=== PATIENT | female | born 1950 | race African-American/Black ===

== ENCOUNTER 2021-12-01 01:40 | Inpatient (IN) | payer BC, MEDICARE ==
[~2021-12-01] VITALS: Ht 165.1 cm; Wt 79.4 kg
[2021-12-01] MEDS ORDERED: NITROGLYCERIN 0.4MG TABLET SL SL PRN ×2 (02:30→11:00)
[2021-12-01 02:44] LABS: BASOPHILS % 0.6 % (0.0-2.0); EOSINOPHILS % 1.9 % (0.0-5.0); HEMOGLOBIN. 12.7 g/dL (12.0-16.0); LYMPHOCYTES % 37.9 % (20.0-50.0); MEAN CORPUSCULAR HEMOGLOBIN 29.8 pg (28.0-32.0); MEAN CORPUSCULAR VOLUME 88.9 fL (81.0-99.0); MEAN PLATELET VOLUME 10.2 fl (7.4-10.4); MONOCYTES % 12.1 % (2.0-8.0); NEUTROPHILS % 47.5 % (40.0-76.0); PLATELET 204 x1000/uL (130-400); RED BLOOD CELL COUNT 4.27 mill/uL (4.2-5.4)
[2021-12-01 03:04] LABS: CHLORIDE 112 mEq/L (98-107)
[2021-12-01 09:04] VITALS: BP 135/79
[2021-12-01] MEDS ORDERED: GUAIFENESIN 200MG/10ML SUGAR FREE UDC PO PRN (10:45)
[2021-12-01] MEDS ORDERED: KETOROLAC 30MG/ML VIAL IV PRN (10:45)
[2021-12-01] MEDS ORDERED: ASPIRIN 325MG EC TABLET PO SCH (10:45)
[2021-12-01] MEDS ORDERED: IPRATROPIUM/ALBUTEROL 0.5-3(2.5)MG/3ML NEB NEB PRN (10:45)
[2021-12-01] MEDS ORDERED: ZOLPIDEM TARTRATE 5MG TABLET PO PRN (10:45)
[2021-12-01] MEDS ORDERED: ACETAMINOPHEN 325MG TABLET PO PRN ×2 (10:45)
[2021-12-01] MEDS ORDERED: DOCUSATE SODIUM 100MG CAPSULE PO PRN (10:45)
[2021-12-01] MEDS ORDERED: ONDANSETRON HCL 4MG/2ML INJ IV PRN (10:45)
[2021-12-01] MEDS ORDERED: CLONIDINE 0.1MG TABLET PO PRN (10:45)
[2021-12-01] MEDS ORDERED: KETOROLAC 15MG/ML VIAL IV PRN (10:45)
[2021-12-01] MEDS ORDERED: MAGNESIUM/ALUMINUM HYDROXIDE/SIMETHICONE 30ML UDC PO PRN (10:45)
[2021-12-01 12:00] VITALS: BP 121/61
[2021-12-01] MEDS: ENOXAPARIN 40MG/0.4ML SYR SUBCUT SCH (12:33)
[2021-12-01] MEDS: FAMOTIDINE 20MG TABLET PO SCH (12:33)
[2021-12-01] MEDS: AMLODIPINE 5MG TABLET PO SCH (14:33)
[2021-12-01 16:00] VITALS: BP 129/63
[2021-12-01] MEDS ORDERED: RIVA20TA PO (16:10)
[2021-12-01 16:33] LABS: CREATINE KINASE 114 IU/L (26-192); CREATINE KINASE MB FRACTION < 1.0 ng/mL (0.5-3.6)
[2021-12-01 17:05] LABS: FERRITIN 74 ng/mL (10-291)
[2021-12-01 17:12] LABS: VITAMIN B12 SERUM 809 pg/mL (211-911)
[2021-12-01] MEDS ORDERED: REGADENOSON 0.4 MG/5 ML IV NR (17:30)
[2021-12-01 20:00] VITALS: BP 123/51
[2021-12-02] VITALS: BP 118/59
[2021-12-02 04:00] VITALS: BP 128/77
[2021-12-02 04:24] LABS: CREATINE KINASE 114 IU/L (26-192); CREATINE KINASE MB FRACTION < 1.0 ng/mL (0.5-3.6)
[2021-12-02 07:39] LABS: BASOPHILS % 0.9 % (0.0-2.0); EOSINOPHILS % 2.2 % (0.0-5.0); HEMATOCRIT. 39.4 % (36.0-48.0); HEMOGLOBIN. 13.2 g/dL (12.0-16.0); LYMPHOCYTES % 45.1 % (20.0-50.0); MEAN CORPUSCULAR HEMOGLOBIN 29.8 pg (28.0-32.0); MEAN CORPUSCULAR VOLUME 88.7 fL (81.0-99.0); MEAN PLATELET VOLUME 10.3 fl (7.4-10.4); MONOCYTES % 10.6 % (2.0-8.0); NEUTROPHILS % 41.2 % (40.0-76.0); PLATELET 205 x1000/uL (130-400); RED BLOOD CELL COUNT 4.44 mill/uL (4.2-5.4); RED CELL DISTRIBUTION WIDTH 13.4 % (11.6-14.6)
[2021-12-02 07:49] LABS: CHLORIDE 111 mEq/L (98-107)
[2021-12-02 08:00] VITALS: BP 125/53
[2021-12-02 08:00] LABS: PHOSPHORUS 3.1 mg/dL (2.5-4.9)
[2021-12-02] MEDS: ENOXAPARIN 40MG/0.4ML SYR SUBCUT SCH (08:39)
[2021-12-02] MEDS: AMLODIPINE 5MG TABLET PO SCH (08:39)
[2021-12-02] MEDS: FAMOTIDINE 20MG TABLET PO SCH (08:39)
[2021-12-02] MEDS: ASPIRIN 81MG TABLET PO SCH (08:40)
[2021-12-02 12:00] VITALS: BP 117/62
[2021-12-02] MEDS ORDERED: REGADENOSON 0.4 MG/5 ML IV ONE (13:18)
[2021-12-02] MEDS ORDERED: METO-396 PO (14:39)
[2021-12-02] MEDS ORDERED: VALA500T55 PO (14:39)
[2021-12-02 16:00] VITALS: BP 130/75
[2021-12-02 20:00] VITALS: BP 138/64
[2021-12-03] VITALS: BP 138/54
[2021-12-03 04:00] VITALS: BP 150/75
[2021-12-03 08:00] VITALS: BP 141/58
[2021-12-03] MEDS: FAMOTIDINE 20MG TABLET PO SCH (08:28)
[2021-12-03] MEDS: ASPIRIN 81MG TABLET PO SCH (08:28)
[2021-12-03] MEDS: ENOXAPARIN 40MG/0.4ML SYR SUBCUT SCH (08:28)
[2021-12-03] MEDS: AMLODIPINE 5MG TABLET PO SCH (08:30)
[2021-12-03] MEDS ORDERED: ASPI-1406 MT (09:34)
[2021-12-03] MEDS ORDERED: FAMO-135 MT (09:34)
[2021-12-03 09:40] VITALS: BP 141/58
[2021-12-03 11:34] VITALS: BP 134/72
== END 2021-12-03 12:00 | disposition home or self-care (01) | DRG 206 ==
LOC: ER 01:40 → 8WST 05:21 → ENRESERV 07:28 → ER 08:23
PROVIDERS: ADMIT Internal Medicine; ATTEND Internal Medicine
DX: M94.0 Chondrocostal junction syndrome [Tietze] (principal); E44.1 Mild protein-calorie malnutrition; R07.89 Other chest pain; E83.51 Hypocalcemia; I10 Essential (primary) hypertension; Z20.822 Contact with and (suspected) exposure to COVID-19; I48.0 Paroxysmal atrial fibrillation; Z79.899 Other long term (current) drug therapy; Z68.29 Body mass index [BMI] 29.0-29.9, adult
CPT/HCPCS: 36415; 71045; 78452; 80053; 80061; 82550; 82553; 82607; 82728; 83036; 83540; 83550; 83735; 83880; 84100; 84443; 84484; 85025; 87426; 93017; 93306; 93970; 99285; A9500; J1650; J2785

== ENCOUNTER 2024-09-08 08:58 | Emergency (ER) | payer MEDICARE, OTHER ==
[~2024-09-08] VITALS: Ht 167.6 cm; Wt 85.0 kg
[~2024-09-08 08:58] MED LIST: ASPI-1406 MT; FAMO-135 MT; METO-396 PO; RIVA20TA PO; VALA500T55 PO
[2024-09-08 09:08] VITALS: O2SAT 99
[2024-09-08] MEDS ORDERED: LIDOCAINE HCL/EPINEPHRINE 1%-EPI 1:100,000 10ML VIAL INFIL ONE (09:30)
[2024-09-08] MEDS: LIDOCAINE HCL/EPINEPHRINE 1%-EPI 1:100,000 20ML VIAL INFIL NR (10:19)
[2024-09-08] MEDS ORDERED: HYDROCODONE/ACETAMINOPHEN 10/325MG TABLET PO ONE (10:30)
[2024-09-08] MEDS: HYDROCODONE/ACETAMINOPHEN 10/325MG TABLET PO NR (11:51)
[2024-09-08] MEDS ORDERED: ACET-2708 MT (12:04)
[2024-09-08 12:52] VITALS: BP 168/83; PULSE 74; RESP 17; TEMP 37.1; O2SAT 100
== END 2024-09-08 12:55 | disposition home or self-care (01) ==
LOC: ER 08:58
DX: S01.112A Laceration without foreign body of left eyelid and periocular area, initial encounter (principal); S06.0XAA Concussion with loss of consciousness status unknown, initial encounter; I10 Essential (primary) hypertension; F03.90 Unspecified dementia, unspecified severity, without behavioral disturbance, psychotic disturbance, mood disturbance, and anxiety; Z90.710 Acquired absence of both cervix and uterus; Z79.899 Other long term (current) drug therapy; Z79.82 Long term (current) use of aspirin; I48.91 Unspecified atrial fibrillation; Z79.624 Long term (current) use of inhibitors of nucleotide synthesis; Z79.01 Long term (current) use of anticoagulants; W01.0XXA Fall on same level from slipping, tripping and stumbling without subsequent striking against object, initial encounter; Y93.01 Activity, walking, marching and hiking; Y92.89 Other specified places as the place of occurrence of the external cause; Y99.8 Other external cause status
CPT/HCPCS: 12013; 71045; 72170; 99284